=== PATIENT | female | born 1990 | race Caucasian/White ===

== ENCOUNTER 2016-06-01 12:11 | Outpatient (CLI) | payer OTHER ==
[~2016-06-01] VITALS: Ht 157.5 cm; Wt 95.9 kg
[~2016-06-01 12:11] MED LIST: STRATTERA80 MG PO
[2016-06-01 12:55] VITALS: BP 142/88; PULSE 86; TEMP 97.9
[2016-06-01 13:30] VITALS: BP 130/77; PULSE 86
== END 2016-06-01 13:40 | disposition home or self-care (01) ==
LOC: LDRO 12:11
DX: O46.8X3 Other antepartum hemorrhage, third trimester (principal); Z3A.37 37 weeks gestation of pregnancy

== ENCOUNTER 2016-06-04 18:51 | Inpatient (IN) | payer OTHER ==
[2016-06-04] VITALS (19 sets, daily range): BP systolic 104–179; BP diastolic 51–110; PULSE 73–110; TEMP 98.3–98.6
[~2016-06-04] VITALS: Ht 157.5 cm; Wt 95.5 kg
[2016-06-04] MEDS ORDERED: FLAGYL500 MG PO (19:21)
[2016-06-04 20:11] LABS: ADJUSTED CALCIUM 9.6 mg/dL (8.4-10.2); BILIRUBIN,TOTAL 0.6 mg/dL (0.0-1.0); CALCIUM 9.6 mg/dL (8.4-10.2); CREATININE, serum 0.55 mg/dL (0.52-1.25); POTASSIUM 3.9 mmol/L (3.4-5.0); TOTAL PROTEIN 7.3 gm/dL (6.4-8.2)
[2016-06-04 20:12] LABS: BASO % 0.3 % (0.0-2.0); EOS # 0.1 (0.0-0.7); EOS % 0.7 % (0-4.0); GRAN # 11.3 (1.4-6.5); GRAN % 75.8 % (42.2-75.2); HEMOGLOBIN 12.3 g/dl (12.5-16.0); LYMPH # 2.5 (1.2-3.4); LYMPH % 16.5 % (20.0-51.0); MEAN CELL VOLUME 88 fl (80.0-100.0); MEAN CORPUSCULAR HEMOGLOBIN 30 pg (27.0-31.0); MEAN CORPUSCULAR HGB CONC 34 g/dl (33.0-37.0); MEAN PLATELET VOLUME 11.3 fl (7.4-10.4); MONO # 0.9 (0.1-0.6); MONO % 5.9 % (1.7-9.3); PLATELET COUNT 337 K/mm3 (130-400); RED BLOOD COUNT 4.12 M/mm3 (4.10-5.30); WHITE BLOOD COUNT 14.9 K/mm3 (4.8-10.8)
[2016-06-04 20:19] LABS: HEMATOCRIT 36.3 % (37.0-47.0)
[2016-06-05] VITALS (18 sets, daily range): BP systolic 110–165; BP diastolic 47–117; PULSE 67–130; TEMP 98.2–98.8
[2016-06-06 09:45] VITALS: BP 135/88; PULSE 88; TEMP 98.2
[2016-06-06 16:07] VITALS: BP 120/64; PULSE 75; TEMP 98.6
[2016-06-06 20:15] VITALS: BP 136/73; PULSE 101; TEMP 98.2
[2016-06-07 08:30] VITALS: BP 120/80; PULSE 85; TEMP 97.9
== END 2016-06-07 15:00 | disposition home or self-care (01) | DRG 775 ==
LOC: LDRO 18:51 → OB 19:28 → LDR 19:28 → OB 06-05 04:00
PROVIDERS: Obstetrics & Gynecology
PROC: 10E0XZZ Delivery of Products of Conception, External Approach (ICD-10-PCS; principal; 2016-06-05)
PROC: 0KQM0ZZ Repair Perineum Muscle, Open Approach (ICD-10-PCS; 2016-06-05)
DX: O99.824 Streptococcus B carrier state complicating childbirth (principal); O70.1 Second degree perineal laceration during delivery; O69.81X0 Labor and delivery complicated by cord around neck, without compression, not applicable or unspecified; Z3A.37 37 weeks gestation of pregnancy; Z37.0 Single live birth
CPT/HCPCS: J2590; J7120

== ENCOUNTER 2017-06-19 17:11 | Inpatient (IN) | payer BC ==
[~2017-06-19] VITALS: Ht 157.5 cm; Wt 90.9 kg
[2017-06-19] VITALS (17 sets, daily range): BP systolic 110–144; BP diastolic 48–79; PULSE 67–113; TEMP 98.8
[~2017-06-19 17:11] MED LIST changes: +FLAGYL500 MG PO
[2017-06-19 18:27] LABS: BASO % 0.3 % (0.0-2.0); EOS # 0.1 (0.0-0.7); EOS % 0.4 % (0-4.0); GRAN # 7.2 (1.4-6.5); GRAN % 61.3 % (42.2-75.2); HEMOGLOBIN 11.5 g/dl (12.5-16.0); LYMPH # 3.9 (1.2-3.4); LYMPH % 32.9 % (20.0-51.0); MEAN CELL VOLUME 88 fl (80.0-100.0); MEAN CORPUSCULAR HEMOGLOBIN 29 pg (27.0-31.0); MEAN CORPUSCULAR HGB CONC 33 g/dl (33.0-37.0); MEAN PLATELET VOLUME 10.6 fl (7.4-10.4); MONO # 0.6 (0.1-0.6); MONO % 4.7 % (1.7-9.3); PLATELET COUNT 261 K/mm3 (130-400); RED BLOOD COUNT 3.94 M/mm3 (4.10-5.30); REDCELL DISTRIBUTION WIDTH-CV 13.6 % (11.5-14.5)
[2017-06-19 18:28] LABS: HEMATOCRIT 34.7 % (37.0-47.0)
[2017-06-19 18:40] LABS: TRICYCLIC ANTIDEPRESS URINE NEGATIVE
[2017-06-19 18:56] LABS: HIV 1/2 Antibodies Non-Reactive; HIV-1p24 Antigen Non-Reactive
[2017-06-19 22:51] LABS: COLLECTION METHOD CATHETER
[2017-06-19 23:39] LABS: MUCOUS Present /lpf; PH 5 (5-8); SQUAMOUS EPITHELIAL 0-2 /hpf; URINE APPEARANCE Turbid; URINE BACTERIA None Seen /hpf; URINE BILIRUBIN Negative (NEGATIVE); URINE BLOOD 1+ (NEGATIVE); URINE COLOR Red; URINE GLUCOSE Negative (NEGATIVE); URINE KETONE Trace (NEGATIVE); URINE LEUKOCYTE ESTERASE Negative (NEGATIVE); URINE NITRATE Negative (NEGATIVE); URINE PROTEIN(semi-quant) 1+ (NEGATIVE)
[2017-06-20 03:11] VITALS: BP 127/75; PULSE 73; TEMP 97.9
[2017-06-20 06:41] LABS: HEMOGLOBIN 10.8 g/dl (12.5-16.0)
[2017-06-20 07:44] VITALS: BP 115/68; PULSE 90; TEMP 98.2
[2017-06-20 15:39] LABS: HEPATITIS B SURFACE ANTIGEN Negative (())
[2017-06-20 17:00] VITALS: BP 121/71; PULSE 95; TEMP 98
[2017-06-20 21:30] VITALS: BP 113/66; PULSE 83; TEMP 98.4
[2017-06-21 02:11] LABS: RPR (VDRL) Non-reactive (())
[2017-06-21] MEDS ORDERED: IBU600 MG PO (08:49)
[2017-06-21] MEDS ORDERED: PERCOCET 325 MG1 TA2 PO (08:49)
[2017-06-21 09:07] VITALS: BP 125/71; PULSE 100; TEMP 97.8
== END 2017-06-21 16:00 | disposition home or self-care (01) | DRG 766 ==
LOC: LDRO 17:11 → LDR 18:13 → OB 20:00
PROVIDERS: Obstetrics & Gynecology
PROC: 10D00Z1 Extraction of Products of Conception, Low, Open Approach (ICD-10-PCS; principal; 2017-06-19)
DX: O32.1XX0 Maternal care for breech presentation, not applicable or unspecified (principal); Z3A.38 38 weeks gestation of pregnancy; Z37.0 Single live birth
CPT/HCPCS: J0690; J1885; J2175; J2370; J2405; J2590; J3010; J7120